=== PATIENT | female | born 1945 | race Two or more races ===

== ENCOUNTER 2018-05-16 07:12 | Outpatient (CLI) | payer OTHER | END 2018-05-16 07:15 | disposition home or self-care (01) | LOC: SONOGRAMA 07:12 | DX: E04.1 Nontoxic single thyroid nodule (principal) ==

== ENCOUNTER 2021-07-17 08:24 | Outpatient (CLI) | payer OTHER | END 2021-07-17 09:37 | disposition home or self-care (01) | LOC: SONOGRAMA 08:24 | PROVIDERS: ATTEND Pathology Anatomic Pathology & Clinical Pathology | DX: D34 Benign neoplasm of thyroid gland (principal); E04.8 Other specified nontoxic goiter; E06.3 Autoimmune thyroiditis; E04.2 Nontoxic multinodular goiter ==

== ENCOUNTER 2022-12-21 09:21 | Outpatient (CLI) | payer OTHER | END 2022-12-21 09:25 | disposition home or self-care (01) | LOC: SONOGRAMA 09:21 | PROVIDERS: ATTEND Pathology Anatomic Pathology | DX: D34 Benign neoplasm of thyroid gland (principal); E04.9 Nontoxic goiter, unspecified ==